=== PATIENT | female | born 1950 | race Caucasian/White ===

== ENCOUNTER 2021-07-16 08:16 | Day surgery (SDC) | payer OTHER ==
[~2021-07-16] VITALS: Ht 160 cm; Wt 52.0 kg
[~2021-07-16 08:16] MED LIST: ASPI325 PO; ASPI81CH PO; CALCIUM + VITA1 EACH PO; FLUO10 PO; GLUC500 PO; HYDACE25S PR; LEVOTHYROXINE; LEVSOD100 PO; LISHYD1012 PO; LISHYD2025 PO; Triamcinolone A15 GM TOP; Unithroid100 MCG PO
== END 2021-07-16 11:35 | disposition home or self-care (01) ==
LOC: ORSCSDS 08:16
PROVIDERS: Surgery
PROC: 0DJD8ZZ Inspection of Lower Intestinal Tract, Via Natural or Artificial Opening Endoscopic (ICD-10-PCS; principal; 2021-07-16 09:45)
DX: Z12.11 Encounter for screening for malignant neoplasm of colon (principal); F41.9 Anxiety disorder, unspecified; E78.5 Hyperlipidemia, unspecified; K21.9 Gastro-esophageal reflux disease without esophagitis; E03.9 Hypothyroidism, unspecified; I10 Essential (primary) hypertension; F17.210 Nicotine dependence, cigarettes, uncomplicated; Z79.899 Other long term (current) drug therapy
CPT/HCPCS: J2704; J7120

== ENCOUNTER 2023-12-01 08:59 | Emergency (ER) | payer OTHER ==
[~2023-12-01] VITALS: Ht 160 cm; Wt 48.1 kg
[2023-12-01 09:19] VITALS: BP 155/93
== END 2023-12-01 11:06 | disposition home or self-care (01) ==
LOC: ER 08:59
DX: M77.8 Other enthesopathies, not elsewhere classified (principal); I10 Essential (primary) hypertension; E03.9 Hypothyroidism, unspecified; F17.200 Nicotine dependence, unspecified, uncomplicated; Z79.82 Long term (current) use of aspirin; Z79.899 Other long term (current) drug therapy; Z88.5 Allergy status to narcotic agent; Z88.1 Allergy status to other antibiotic agents; Z88.8 Allergy status to other drugs, medicaments and biological substances
CPT/HCPCS: 73110; 99283-25